=== PATIENT | male | born 1980 | race African-American/Black ===

== ENCOUNTER 2016-12-24 09:15 | Inpatient (IN) | payer MEDICAID ==
[~2016-12-24] VITALS: Ht 180.3 cm; Wt 84.1 kg
--- NOTE | 2016-12-24 09:25 | NUR ---
DR LUTZ AT THE BEDSIDE FOR EVAL AND EXAM.
[2016-12-24] MEDS ORDERED: CEFAZOLIN 1 G VIAL IM ONE (09:30)
[2016-12-24] MEDS ORDERED: NEOMY/BACITRA/POLYMYXIN B OINT UD PACKET TP ONE ×2 (09:30→09:54)
[2016-12-24] MEDS ORDERED: TDAP DIPH,PERTUSS,TET VAC/PF 0.5 ML DISP.SYRIN IM ONE ×2 (09:30→09:55)
[2016-12-24 09:48] LABS: BASOPHILS # (AUTO) 0.2 K/uL (0.0-8.0); BASOPHILS % (AUTO) 1.3 % (0.0-2.0); EOSINOPHILS # (AUTO) 0.1 K/uL (0.0-0.7); EOSINOPHILS % (AUTO) 0.7 % (0.0-7.0); HEMATOCRIT 50.4 % (40-50); HEMOGLOBIN 17.1 G/DL (14.0-18.0); LYMPHOCYTES # (AUTO) 1.4 K/UL (0.8-4.8); LYMPHOCYTES % (AUTO) 8.6 % (20.5-51.5); MEAN CORPUSCULAR HEMOGLOBIN 29.5 UUG (27.0-31.0); MEAN CORPUSCULAR HGB CONC 34 g/dL (32.0-37.0); MEAN CORPUSCULAR VOLUME 86.6 FL (82.0-92.0); MONOCYTES # (AUTO) 0.8 K/UL (0.1-1.30); MONOCYTES % (AUTO) 4.8 % (0.0-11.0); NEUTROPHILS # (AUTO) 13.7 K/UL (1.8-8.9); NEUTROPHILS % (AUTO) 84.6 % (38.5-71.5); PLATELET COUNT (AUTO) 156 K/UL (150-450); RED BLOOD CELL COUNT(AUTO) 5.82 MIL/UL (4.7-6.1); WHITE BLOOD COUNT (AUTO) 16.2 K/UL (4.0-11.2)
[2016-12-24] MEDS ORDERED: CEFAZOLIN 1 G VIAL ONE (09:54)
[2016-12-24 09:56] LABS: CARBON DIOXIDE 23 mmol/L (21-32); CHLORIDE 97 mmol/L (98-107); ETHANOL 372 MG/DL (0-0); GLUCOSE 127 mg/dL (74-106); POTASSIUM 3.8 mmol/L (3.5-5.1); UREA NITROGEN, BLOOD 8 mg/dL (7-18)
[2016-12-24 10:01] LABS: ALANINE AMINOTRANSFERASE 141 U/L (16-63); ALKALINE PHOSPHATASE 110 U/L (50-136); ASPARTATE AMINOTRANSFERASE 295 U/L (15-37); BILIRUBIN,DIRECT 0.2 mg/dL (0.0-0.2); BILIRUBIN,TOTAL 0.8 mg/dL (0.2-1.0); TOTAL PROTEIN, SERUM 8.8 g/dL (6.4-8.2)
[2016-12-24 10:02] LABS: ACETAMINOPHEN < 2.0 ug/mL (10-30)
--- NOTE | 2016-12-24 10:05 | NUR ---
PT HAS MULTIPLE BRUISES ON TORSO AND UPPER AND LOWER EXTREMITIES IN DIFFERENT HEALING STAGES , AND UNABLE TO RECCALL HOW IT HAPPENED.
[2016-12-24] MEDS ORDERED: IV NORMAL SALINE 1000 ML BAG IV ONE (10:30)
[2016-12-24] MEDS ORDERED: PIPERACILLIN SODIUM/TAZOBACTAM 3.375 G in IV DEXTROSE 5% 50 ML IV ONE (10:30)
[2016-12-24] MEDS ORDERED: VANCOMYCIN IV 1,000 MG in IV DEXTROSE 5% 250 ML IV ONE (10:30)
[2016-12-24 10:35] LABS: THYROID STIMULATING HORMONE 0.726 mIU/mL (0.358-3.740)
[2016-12-24] MEDS ORDERED: VANCOMYCIN IV 200 ML ONE (10:57)
[2016-12-24] MEDS ORDERED: PIPERACILLIN/TAZOBACTAM/D5W 50 ML IV ONE (10:58)
--- NOTE | 2016-12-24 11:19 | NUR ---
PT REMAINES RESTLESS BUT COOPERATIVE AND MORE ALERT. PT STATES HE WAS IN MANIC PHASE OF BIPOLAR AND FELL DOWN SO HE IS ALL CUT AND BRUISED.
[2016-12-24 11:33] LABS: *BILIRUBIN,URIN NEGATIVE (NEGATIVE); *CLARITY,URINE CLEAR (CLEAR); *COLOR,URINE YELLOW (YELLOW); *KETONES,URINE 1+ (NEGATIVE); *PROTEIN,URINE 2+ (NEGATIVE); *UROBILINOGEN,URINE 0.2 E.U./dl (NORMAL); LEUKOCYTE ESTERASE ,URINE NEGATIVE (NEGATIVE); NITRITE, URINE NEGATIVE (NEGATIVE); PH,URINE 5.5 (5.0-8.0); UGLUCOSE NEGATIVE (NEGATIVE)
[2016-12-24 11:44] LABS: *BLOOD, URINE 3+ (NEGATIVE)
[2016-12-24 11:46] LABS: BACTERIA,URINE NONE SEEN /HPF (NONE SEEN); MUCUS,URINE FEW /LPF (0-FEW); RBC,URINE 0-3 /HPF (0-3); SQUAMOUS EPITHELIAL CELL,UR FEW /HPF (NONE SEEN); WBC,URINE 0-3 /HPF (0-3)
[2016-12-24 11:47] LABS: *AMPHETAMINE, URINE NEGATIVE (NEGATIVE); *BARBITURATE, URINE NEGATIVE (NEGATIVE); *CANNABINOID, URINE NEGATIVE (NEGATIVE); *COCCAINE, URINE NEGATIVE (NEGATIVE); *OPIATE, URINE NEGATIVE (NEGATIVE); *PHENCYCLIDINE SCREEN,URINE NEGATIVE (NEGATIVE)
[2016-12-24] MEDS ORDERED: ONDANSETRON 4 MG/2 ML VIAL ONE (11:58)
--- NOTE | 2016-12-24 12:31 | NUR ---
LUNCH PROVIDED, PT HAS POOR APPETITE. BELONGING LIST COMPLETED, PT NOT CANDIDATE FOR MRSA.
[2016-12-24] MEDS ORDERED: CLONIDINE HCL 0.1 MG TABLET PO PRN (12:45)
[2016-12-24] MEDS ORDERED: ONDANSETRON 4 MG/2 ML VIAL IV PRN (12:45)
[2016-12-24] MEDS ORDERED: AMLODIPINE 5 MG TABLET PO SCH (12:45)
[2016-12-24 13:53] VITALS: BP 123/76
[2016-12-24] MEDS ORDERED: ASPIRIN EC 81 MG TABLET.DR PO SCH (14:15)
[2016-12-24] MEDS ORDERED: MORPHINE SULFATE 2 MG/1 ML DISP.SYRIN IV PRN (14:15)
[2016-12-24] MEDS: LORAZEPAM 2 MG/1 ML VIAL IV PRN ×3 (14:46→22:35)
--- NOTE | 2016-12-24 14:59 | NUR ---
ADMISSION PROTOCOL FOLLOWED, PT EXTREMELY ANXIOUS. REMOVED IV, TELE BOX, ARM BAND AND GOWN. HAS MULTIPLE WOUNDS ALL OVER BODY, STATES HE HAD A MENTAL BREAKDOWN AND DOES NOT RECALL EXACTLY HOW HE GOT THE WOUNDS. PT STATED THAT HE HAD 2 BOTTLES OF WINE LAST NIGHT AND WAS STAYING AT A FRIENDS HOUSE BUT NO ONE WAS HOME. AAKASH CHAMBERLAIN SAW PATIENT UPON ARRIVAL, PARTS DELIVERY DRIVER IN ROOM NOW
[2016-12-24] MEDS: IV NS 1000 ML 1,000 ML IV PRN (15:13)
[2016-12-24] MEDS: MORPHINE SULFATE 4 MG/1 ML DISP.SYRIN IV PRN (15:44)
--- NOTE | 2016-12-24 15:58 | NUR ---
ADMISSION PICTURES TAKEN, WOUNDS COVERED WITH MEPILEX AND KERLIX PER SECURITY COMPLIANCE SPECIALIST ORDERS
[2016-12-24] MEDS: FOLIC ACID 1 MG TABLET PO SCH (16:32)
[2016-12-24] MEDS: MULTIVITAMINS,THERAPEUTIC TABLET PO SCH (16:32)
[2016-12-24] MEDS: THIAMINE HCL 100 MG TABLET PO SCH (16:32)
[2016-12-24 16:57] VITALS: BP 140/83
[2016-12-24] MEDS: PIPERACILLIN/TAZOBACTAM/D5W 50 ML IV SCH (18:45)
--- NOTE | 2016-12-24 19:00 | NUR ---
PHARMACY CLINICAL NOTES; VANCOMYCIN DOSE Subjective: 36 yo with altered mental status; on empiric therapy (vancomycin and zosyn); Objective: BUN/SCR 8/1.0, WBC 16.2, TEMP 98.8; ; DOSING WT 91 KG Assessment /Plan: patient received 1gm vancomycin in ER @ 11:00 will continue with Vancomycin 2000 mg q12hr starting @ 1900 will ck trough prior to 4th dose (not ordered yet); expected trough 16. RX will continue monitoring renal fxn and adjust the dose as necessary.
[2016-12-24 20:00] VITALS: BP 121/69
[2016-12-24] MEDS: VANCOMYCIN IV 2,000 MG in IV DEXTROSE 5% 500 ML IV SCH (21:22)
[2016-12-24] MEDS: QUETIAPINE FUMARATE 25 MG TABLET PO SCH (21:23)
[2016-12-25] VITALS: BP 127/79
[2016-12-25] MEDS: PIPERACILLIN/TAZOBACTAM/D5W 50 ML IV SCH ×4 (01:06→17:48)
[2016-12-25] MEDS: IV NS 1000 ML 1,000 ML IV PRN ×2 (03:22→15:47)
[2016-12-25 04:12] VITALS: BP 131/73
[2016-12-25 07:01] LABS: BASOPHILS % (AUTO) 0.1 % (0.0-2.0); EOSINOPHILS % (AUTO) 0.1 % (0.0-7.0); HEMATOCRIT 46.8 % (40-50); HEMOGLOBIN 15.5 G/DL (14.0-18.0); LYMPHOCYTES # (AUTO) 0.9 K/UL (0.8-4.8); LYMPHOCYTES % (AUTO) 6.6 % (20.5-51.5); MEAN CORPUSCULAR HEMOGLOBIN 28.5 UUG (27.0-31.0); MEAN CORPUSCULAR HGB CONC 33 g/dL (32.0-37.0); MEAN CORPUSCULAR VOLUME 86.2 FL (82.0-92.0); MONOCYTES # (AUTO) 0.6 K/UL (0.1-1.30); MONOCYTES % (AUTO) 4.5 % (0.0-11.0); NEUTROPHILS # (AUTO) 12.3 K/UL (1.8-8.9); NEUTROPHILS % (AUTO) 88.7 % (38.5-71.5); PLATELET COUNT (AUTO) 115 K/UL (150-450); RED BLOOD CELL COUNT(AUTO) 5.43 MIL/UL (4.7-6.1); WHITE BLOOD COUNT (AUTO) 13.8 K/UL (4.0-11.2)
[2016-12-25 07:16] LABS: THYROID STIMULATING HORMONE 2.222 mIU/mL (0.358-3.740)
--- NOTE | 2016-12-25 08:00 | NUR ---
awake alert and oriented x 4, denies of pain, no shortness of breath noted, on 1:1 sitter, tele SR 98, explained plan of care- verbalized understanding, safety measures maintained, dsg on left wrist and right leg dry and intact, needs attended
[2016-12-25 08:04] LABS: BILIRUBIN,TOTAL 1.9 mg/dL (0.2-1.0); CREATININE 1.1 mg/dL (0.6-1.3); MAGNESIUM 1.6 mg/dL (1.8-2.4); PHOSPHOROUS 2.9 mg/dL (2.5-4.9); POTASSIUM 3.7 mmol/L (3.5-5.1); TOTAL PROTEIN, SERUM 7.6 g/dL (6.4-8.2)
[2016-12-25] MEDS: MULTIVITAMINS,THERAPEUTIC TABLET PO SCH (08:17)
[2016-12-25] MEDS: PANTOPRAZOLE SODIUM 40 MG TABLET.DR PO SCH (08:17)
[2016-12-25] MEDS: THIAMINE HCL 100 MG TABLET PO SCH (08:17)
[2016-12-25] MEDS: QUETIAPINE FUMARATE 25 MG TABLET PO SCH ×4 (08:17→21:14)
[2016-12-25] MEDS: FOLIC ACID 1 MG TABLET PO SCH (08:18)
[2016-12-25] MEDS: VANCOMYCIN IV 2,000 MG in IV DEXTROSE 5% 500 ML IV SCH ×2 (08:30→18:45)
[2016-12-25 09:23] VITALS: BP 100/74
--- NOTE | 2016-12-25 10:15 | NUR ---
seen by Dr Brush
[2016-12-25 12:00] VITALS: BP 130/73
--- NOTE | 2016-12-25 14:24 | NUR ---
WOUND CARE CONSULT: PT PRESENTS WITH LACERATIONS TO LEFT WRIST, ELBOW AND RT LOWER LEG, PRESENT ON ADMISSION. PT STATES BROKE A BOTTLE AND FELL ON GLASS. SITTER AT BEDSIDE. RECOMMEND SURGICAL CONSULT. RECOMMENDATIONS MADE FOR WOUND CARE. DISCUSSED WITH NURSING STAFF. WILL SEE PRN. CASTANO IN AGREEMENT WITH PLAN OF CARE. Addendum: 12/25/16 at 1426 by NANCY LIU RN Amended: Links added.
--- NOTE | 2016-12-25 15:00 | NUR ---
downgraded to [facility]
--- NOTE | 2016-12-25 15:45 | NUR ---
discharge instructions given by RN and medications instructions by pharmacist- verbalized understanding, saline lock removed, no swelling/redness noted on site, waiting for son to pick her up Addendum: 12/25/16 at 1653 by JUAN NOGUEIRA RN wrong entry
[2016-12-25] MEDS: BACITRACIN/POLYMYXIN B OINT 15 GM TUBE TOP SCH ×2 (15:48→21:16)
[2016-12-25] MEDS: MAGNESIUM SULFATE/D5W 100 ML IV SCH ×2 (15:48→17:07)
--- NOTE | 2016-12-25 15:50 | NUR ---
wound care done as ordered
[2016-12-25 16:07] VITALS: BP 124/73
--- NOTE | 2016-12-25 16:23 | NUR ---
PHARMACY CLINICAL NOTES; VANCOMYCIN DOSE Subjective: 36 yo with altered mental status; on empiric therapy (vancomycin and zosyn); Objective: BUN/SCR 6/1.1 WBC 13.8, TEMP 99.5 ; DOSING WT 91 KG Assessment /Plan: Will continue Vancomycin 2 gram IV every 12hrs and draw trough by 4th dose(ordered tomorrow 0630 am) for expected trough around 15.47. Will monitor renal function closely to adjust the dose if needed. Will follow daily.
--- NOTE | 2016-12-25 16:34 | NUR ---
son here- escorted to car per w/c in stable condition under son's care- all belongings with her Addendum: 12/25/16 at 1653 by JUAN NOGUEIRA RN wrong entry-
[2016-12-25] MEDS: ACETAMINOPHEN 325 MG TABLET PO PRN ×2 (17:10→23:02)
--- NOTE | 2016-12-25 17:10 | NUR ---
c/o fo generalized aches/pains- medicated with Tylenol 650mg po as ordered prn
--- NOTE | 2016-12-25 18:28 | NUR ---
states headache relieved, resting in bed, no distress noted, all needs attended and met, 1:1 sitter in the room, safety measures maintained
--- NOTE | 2016-12-25 19:30 | NUR ---
RECIEVED PATIENT LAYING COMFORTABLY IN BED. HOB ELEVATED. SAFETY INITIATED. CALL LIGHT WITHIN REACH. WILL REVIEW MEDICATIONS. WILL GIVE MEDICATIONS ORDERED. WILL CONTINUE TO MONITOR.
[2016-12-25] MEDS: LACTOBACILLUS RHAMNOSUS GG 1 EACH CAPSULE PO SCH (21:14)
[2016-12-26] MEDS: PIPERACILLIN/TAZOBACTAM/D5W 50 ML IV SCH ×4 (00:29→18:23)
[2016-12-26] MEDS: IV NS 1000 ML 1,000 ML IV PRN ×2 (05:45→20:44)
[2016-12-26 07:15] LABS: BASOPHILS % (AUTO) 0.2 % (0.0-2.0); EOSINOPHILS # (AUTO) 0.2 K/uL (0.0-0.7); HEMATOCRIT 44.5 % (40-50); HEMOGLOBIN 14.7 G/DL (14.0-18.0); LYMPHOCYTES # (AUTO) 0.9 K/UL (0.8-4.8); LYMPHOCYTES % (AUTO) 8.5 % (20.5-51.5); MEAN CORPUSCULAR HEMOGLOBIN 28.9 UUG (27.0-31.0); MEAN CORPUSCULAR HGB CONC 33 g/dL (32.0-37.0); MEAN CORPUSCULAR VOLUME 87.4 FL (82.0-92.0); MONOCYTES # (AUTO) 0.4 K/UL (0.1-1.30); MONOCYTES % (AUTO) 3.5 % (0.0-11.0); NEUTROPHILS # (AUTO) 8.9 K/UL (1.8-8.9); NEUTROPHILS % (AUTO) 85.8 % (38.5-71.5); RED BLOOD CELL COUNT(AUTO) 5.09 MIL/UL (4.7-6.1); WHITE BLOOD COUNT (AUTO) 10.4 K/UL (4.0-11.2)
[2016-12-26 07:25] LABS: PLATELET COUNT (AUTO) 93 K/UL (150-450)
[2016-12-26 07:30] LABS: CREATININE 0.9 mg/dL (0.6-1.3); MAGNESIUM 2.3 mg/dL (1.8-2.4); POTASSIUM 3.4 mmol/L (3.5-5.1)
--- NOTE | 2016-12-26 08:05 | NUR ---
NO CHANGES T/O SHIFT. SAFETY AND COMFORT MEASURES MAINTAINED T/O SHIFT. SITTER AT BEDSIDE. PICTURES OF WOUNDS AND SCABS TAKEN AND FILED INTO CHART. ALL MEDS GIVEN ORDERED. ALL NEEDS MET.
[2016-12-26] MEDS: VANCOMYCIN IV 2,000 MG in IV DEXTROSE 5% 500 ML IV SCH ×2 (09:00→20:44)
[2016-12-26] MEDS ORDERED: POTASSIUM CHLORIDE 20 MEQ TAB.PRT.SR PO ONE (09:30)
[2016-12-26 09:52] LABS: BAND % (MANUAL) 2 % (0-10); EOSINOPHILS % (MANUAL) 2 % (0-8); LYMPHOCYTES % (MANUAL) 10 % (20-40); MONOCYTES % (MANUAL) 4 % (2-10); NEUTROPHILS % (MANUAL) 82 % (42-75)
[2016-12-26] MEDS: PANTOPRAZOLE SODIUM 40 MG TABLET.DR PO SCH (10:00)
[2016-12-26] MEDS: QUETIAPINE FUMARATE 25 MG TABLET PO SCH ×4 (10:00→20:44)
[2016-12-26] MEDS: LACTOBACILLUS RHAMNOSUS GG 1 EACH CAPSULE PO SCH ×2 (10:01→20:44)
[2016-12-26] MEDS: LORAZEPAM 2 MG/1 ML VIAL IV PRN ×2 (10:01→18:24)
[2016-12-26] MEDS: THIAMINE HCL 100 MG TABLET PO SCH (10:01)
[2016-12-26] MEDS: MULTIVITAMINS,THERAPEUTIC TABLET PO SCH (10:01)
[2016-12-26] MEDS: FOLIC ACID 1 MG TABLET PO SCH (10:01)
[2016-12-26] MEDS: BACITRACIN/POLYMYXIN B OINT 15 GM TUBE TOP SCH ×2 (10:02→23:23)
--- NOTE | 2016-12-26 11:19 | NUR ---
PHARMACY CLINICAL NOTES; VANCOMYCIN DOSE Subjective: 36 yo with altered mental status; on empiric therapy (vancomycin and zosyn); Objective: BUN/SCR 5/0.9 WBC 10.4 , TEMP 98.3 VANCO TROUGH LEVEL: 12.9 Assessment /Plan: Since vanco trough level is below 15-20 mcg/ml rage, will change dose from Vancomycin 2 gram IV every 12hrs to vancomycin 2gm IVB q11h for predicted vancomycin trough level of 15 mcg/ml at steady state. 1st dose is due today at 0900. Plan to draw vancomycin trough level before 4th dose of current regimen (level not yet ordered). Will monitor renal function closely to adjust the dose if needed. Will follow daily.
[2016-12-26 11:42] VITALS: BP 136/89
[2016-12-26 15:45] VITALS: BP 140/91
--- NOTE | 2016-12-26 19:45 | NUR ---
PT RECEIVED SITTING UP IN BED, PT SISTER AT BEDSIDE. NOTED BRUISES AND HEALING SCRATCHES ALL OVER BODY, PT ALSO HAS DRESSING TO RIGHT LOWER LEG, PT EDUCATED ABOUT NON WEIGHT BEARING TO RIGHT LEG. LUNG SOUNDS CLEAR THROUGH OUT WITH AUSCULTATION. VITAL SIGNS WNL. IVF RUNNING IN LEFT ARM, INTACT AND PATENT. PT BED IN LOW AND LOCKED POSITION. CALL LIGHT WITHIN REACH.
[2016-12-26 20:00] VITALS: BP 140/88
--- NOTE | 2016-12-26 20:00 | NUR ---
SPOKE WITH PT SISTER REGARDING PSYCH CONSULT. PT SISTER ADAMANT ABOUT SPEAKING TO PSYCHIATRIST, PT SISTER EDUCATED ABOUT MD ARRIVAL TIME SO PHONE NUMBER WAS LEFT AND WILL GIVEN TO MD.
[2016-12-26] MEDS: ACETAMINOPHEN 325 MG TABLET PO PRN (20:53)
--- NOTE | 2016-12-26 21:15 | NUR ---
PER DR LIMA PT IS TO BE SEEN BY DR MOSQUEDA IN AM, WILL ENDORSE TO ON COMING RN.
[2016-12-27] MEDS: PIPERACILLIN/TAZOBACTAM/D5W 50 ML IV SCH ×3 (01:00→13:15)
[2016-12-27] MEDS: MORPHINE SULFATE 4 MG/1 ML DISP.SYRIN IV PRN (01:08)
[2016-12-27 06:00] VITALS: BP 134/96
[2016-12-27] MEDS: ACETAMINOPHEN 325 MG TABLET PO PRN ×2 (06:03→22:17)
[2016-12-27 06:45] LABS: BASOPHILS % (AUTO) 0.5 % (0.0-2.0); EOSINOPHILS # (AUTO) 0.4 K/uL (0.0-0.7); HEMATOCRIT 41.9 % (40-50); LYMPHOCYTES # (AUTO) 1.3 K/UL (0.8-4.8); LYMPHOCYTES % (AUTO) 15.3 % (20.5-51.5); MEAN CORPUSCULAR HEMOGLOBIN 29.5 UUG (27.0-31.0); MEAN CORPUSCULAR HGB CONC 34 g/dL (32.0-37.0); MEAN CORPUSCULAR VOLUME 88.1 FL (82.0-92.0); MONOCYTES # (AUTO) 0.5 K/UL (0.1-1.30); MONOCYTES % (AUTO) 5.9 % (0.0-11.0); NEUTROPHILS # (AUTO) 6.1 K/UL (1.8-8.9); NEUTROPHILS % (AUTO) 73.3 % (38.5-71.5); PLATELET COUNT (AUTO) 102 K/UL (150-450); RED BLOOD CELL COUNT(AUTO) 4.76 MIL/UL (4.7-6.1); WHITE BLOOD COUNT (AUTO) 8.3 K/UL (4.0-11.2)
[2016-12-27 07:01] LABS: CREATININE 0.9 mg/dL (0.6-1.3); POTASSIUM 3.1 mmol/L (3.5-5.1)
[2016-12-27] MEDS: VANCOMYCIN IV 2,000 MG in IV DEXTROSE 5% 500 ML IV SCH (07:10)
[2016-12-27] MEDS: FOLIC ACID 1 MG TABLET PO SCH (08:46)
[2016-12-27] MEDS: QUETIAPINE FUMARATE 25 MG TABLET PO SCH ×4 (08:46→20:41)
[2016-12-27] MEDS: LORAZEPAM 2 MG/1 ML VIAL IV PRN ×3 (08:46→22:15)
[2016-12-27] MEDS: PANTOPRAZOLE SODIUM 40 MG TABLET.DR PO SCH (08:46)
[2016-12-27] MEDS: MULTIVITAMINS,THERAPEUTIC TABLET PO SCH (08:46)
[2016-12-27] MEDS: LACTOBACILLUS RHAMNOSUS GG 1 EACH CAPSULE PO SCH ×2 (08:46→20:41)
[2016-12-27] MEDS: THIAMINE HCL 100 MG TABLET PO SCH (08:46)
[2016-12-27] MEDS: BACITRACIN/POLYMYXIN B OINT 15 GM TUBE TOP SCH ×2 (09:00→20:46)
[2016-12-27 11:20] VITALS: BP 136/84
[2016-12-27] MEDS ORDERED: POTASSIUM CHLORIDE 20 MEQ TAB.PRT.SR PO ONE (12:15)
[2016-12-27] MEDS ORDERED: CLON0.2T PO (12:39)
[2016-12-27] MEDS ORDERED: TRAZ-147 PO (12:41)
[2016-12-27] MEDS ORDERED: CLON2TAB PO (12:42)
--- NOTE | 2016-12-27 14:25 | NUR ---
PHARMACY CLINICAL NOTES; VANCOMYCIN DOSE Subjective: 36 yo with altered mental status; on empiric therapy (vancomycin and zosyn); Objective: BUN/SCR 7/0.9 WBC 8.3 , TEMP 98.7 Assessment /Plan: Since renal function is stable, will continue Vancomycin 2 grams IV every 11hrs and draw trough by 4th dose(ordered today at 1730) for expected trough level of 15 mcg/ml at steady state. Will monitor renal function closely to adjust the dose if needed. Will follow daily.
[2016-12-27 15:05] VITALS: BP 118/78
--- NOTE | 2016-12-27 20:00 | NUR ---
RECEIVED PATIENT AWAKE IN BED. A/O X4. DENIES PAIN OR DISCOMFORT. NO RESP. DISTRESS NOTED. IVF INFUSING WELL TO LEFT FA #20 GAUGE. CALL LIGHT IN REACH. ALL NEEDS ATTENDED. WILL CONTINUE TO MONITOR.
[2016-12-27 20:27] VITALS: BP 140/98
[2016-12-27] MEDS: IV NS 1000 ML 1,000 ML IV PRN (20:41)
[2016-12-28] MEDS: LORAZEPAM 2 MG/1 ML VIAL IV PRN ×3 (04:36→20:15)
[2016-12-28] MEDS: IV NS 1000 ML 1,000 ML IV PRN ×3 (04:40→20:00)
[2016-12-28] MEDS: ACETAMINOPHEN 325 MG TABLET PO PRN ×2 (04:40→11:18)
[2016-12-28 04:45] VITALS: BP 141/97
[2016-12-28 06:42] LABS: BASOPHILS # (AUTO) 0.1 K/uL (0.0-8.0); BASOPHILS % (AUTO) 0.7 % (0.0-2.0); EOSINOPHILS # (AUTO) 0.3 K/uL (0.0-0.7); EOSINOPHILS % (AUTO) 3.6 % (0.0-7.0); HEMATOCRIT 42.9 % (40-50); HEMOGLOBIN 14.3 G/DL (14.0-18.0); LYMPHOCYTES # (AUTO) 1.3 K/UL (0.8-4.8); MEAN CORPUSCULAR HEMOGLOBIN 29.3 UUG (27.0-31.0); MEAN CORPUSCULAR HGB CONC 33 g/dL (32.0-37.0); MONOCYTES # (AUTO) 0.7 K/UL (0.1-1.30); MONOCYTES % (AUTO) 9.2 % (0.0-11.0); NEUTROPHILS # (AUTO) 5.7 K/UL (1.8-8.9); NEUTROPHILS % (AUTO) 70.5 % (38.5-71.5); PLATELET COUNT (AUTO) 123 K/UL (150-450); RED BLOOD CELL COUNT(AUTO) 4.87 MIL/UL (4.7-6.1); WHITE BLOOD COUNT (AUTO) 8.1 K/UL (4.0-11.2)
--- NOTE | 2016-12-28 06:51 | NUR ---
PATIENT AWAKE IN BED. DENIES PAIN OR DISCOMFORT. NO RESP. DISTRESS NOTED. VS WNL. NEW IV HEPLOCK NOTED TO LEFT AC #18 GAUGE WITH IVF WELL. SLEPT AT INTERVALS. PATIENT KEPT NPO SINCE MIDNIGHT ORDERED. CALL LIGHT IN REACH. ALL NEEDS ATTENDED. WILL CONTINUE TO MONITOR.
[2016-12-28 06:58] LABS: CARBON DIOXIDE 25 mmol/L (21-32); CHLORIDE 103 mmol/L (98-107); CREATININE 0.8 mg/dL (0.6-1.3); GLUCOSE 102 mg/dL (74-106); MAGNESIUM 1.6 mg/dL (1.8-2.4); POTASSIUM 3.1 mmol/L (3.5-5.1); UREA NITROGEN, BLOOD 6 mg/dL (7-18)
[2016-12-28] MEDS: PANTOPRAZOLE SODIUM 40 MG TABLET.DR PO SCH (09:50)
[2016-12-28] MEDS: QUETIAPINE FUMARATE 25 MG TABLET PO SCH ×4 (09:50→20:04)
[2016-12-28] MEDS: THIAMINE HCL 100 MG TABLET PO SCH (09:51)
[2016-12-28] MEDS: FOLIC ACID 1 MG TABLET PO SCH (09:51)
[2016-12-28] MEDS: MULTIVITAMINS,THERAPEUTIC TABLET PO SCH (09:51)
[2016-12-28] MEDS: LACTOBACILLUS RHAMNOSUS GG 1 EACH CAPSULE PO SCH ×2 (09:51→20:03)
[2016-12-28] MEDS ORDERED: ONDANSETRON 4 MG/2 ML VIAL IV ONE (09:55)
[2016-12-28] MEDS ORDERED: LIDOCAINE HCL 1% 20 ML VIAL MC ONE (09:55)
[2016-12-28] MEDS ORDERED: SEVOFLURANE 250 ML BOTTLE IH ONE (09:55)
[2016-12-28] MEDS ORDERED: PROPOFOL 200 MG/20 ML BOTTLE IV ONE (09:55)
[2016-12-28] MEDS ORDERED: DEXAMETHASONE SOD PHOSPHATE 4 MG INJ IV ONE (09:55)
[2016-12-28] MEDS ORDERED: CEFAZOLIN 1 G VIAL MC ONE (09:55)
[2016-12-28] MEDS ORDERED: IV LACTATED RINGERS SOLUTION 1,000 ML BAG IV ONE (09:55)
[2016-12-28] MEDS: BACITRACIN/POLYMYXIN B OINT 15 GM TUBE TOP SCH ×2 (11:19→20:04)
[2016-12-28 11:58] VITALS: BP 146/100
[2016-12-28] MEDS ORDERED: POTASSIUM CHLORIDE 20 MEQ TAB.PRT.SR PO ONE (13:30)
[2016-12-28] MEDS: MAGNESIUM SULFATE/D5W 100 ML IV SCH ×3 (13:48→15:09)
[2016-12-28 16:10] VITALS: BP 141/101
--- NOTE | 2016-12-28 16:45 | NUR ---
PT. RESTING IN BED AND ELEVATED RIGHT LEG. NPO FOR SURGERY. WOUND CARE PERFORMED THIS MORNING. POTASSIUM AND MAGNESIUM REPLACED PER ORDER. PT. OFFERS NO COMPLAINTS. PRE-OP CHECK LIST COMPLETED. 1645 ` PT. LEFT FOR SURGERY VIA BED. SL. Addendum: 12/28/16 at 1721 by NELLIE ORDONEZ RN Amended: Links added.
[2016-12-28] MEDS ORDERED: HYDROMORPHONE 2 MG/1 ML DISP.SYRIN ONE (17:23)
[2016-12-28] MEDS ORDERED: ROCURONIUM BROMIDE 50 MG/5 ML VIAL ONE (17:24)
[2016-12-28] MEDS ORDERED: MIDAZOLAM HCL 2 MG/2 ML VIAL ONE (17:24)
[2016-12-28] MEDS ORDERED: POLYMYXIN B SULFATE 500,000 UNITS, BACITRACIN 50,000 UNITS, NORMAL SALINE 20 ML MC ONE ×3 (17:30)
[2016-12-28] MEDS ORDERED: BUPIVACAINE/EPI PF 0.5% 10 ML VIAL ONE (18:00)
[2016-12-28] MEDS ORDERED: BUPIVACAINE PF 0.5% 30 ML VIAL ONE (18:00)
[2016-12-28] MEDS ORDERED: CEFAZOLIN 50 ML IV ONE (18:52)
[2016-12-28] MEDS ORDERED: MORPHINE SULFATE 4 MG/1 ML DISP.SYRIN IV PRN (19:00)
[2016-12-28] MEDS ORDERED: HYDROMORPHONE 1 MG/1 ML DISP.SYRIN ONE (19:26)
[2016-12-28] MEDS ORDERED: diphenhydrAMINE 50 MG/1 ML VIAL ONE (19:37)
--- NOTE | 2016-12-28 19:45 | NUR ---
RECEIVED PATIENT VIA BED FROM SURGERY, POST-OP ORIF OF THE RIGHT LOWER LEG. PATIENT IS A/O X4. DENIES PAIN UPON ARRIVAL BACK TO THE FLOOR. NEURO-VASCULAR CHECKS WNL. SENSATION IS PRESENT AND PATIENT IS ABLE TO MOVE AND WIGGLE TOES. H/L INTACT AND PATENT, WITH IVF INFUSING ORDERED. BED ALARM ON. PATIENT MADE COMFORTABLE AND INFORMED TO REMAIN ON BEDREST UNTIL PT COMES TO EVALUATE IN AM. CALL LIGHT IN REACH. ALL NEEDS ATTENDED. WILL CONTINUE TO MONITOR.
[2016-12-28 20:00] VITALS: BP 154/117
--- NOTE | 2016-12-28 20:00 | NUR ---
PATIENTS BLOOD PRESSURE 154/111. PATIENT GIVEN CLONIDINE 0.1MG PO PRN FOR ELEVATED BP. WILL CONTINUE TO MONITOR.
--- NOTE | 2016-12-28 20:15 | NUR ---
PATIENT AWAKE IN BED. DENIES PAIN BUT ASKING FOR ATIVAN. PATIENT GIVEN ATIVAN 1MG IV PRN PER CAUSTIC MIXER. DRESSING NOTED TO RIGHT LOWER EXTREMITY, CLEAN, DRY AND INTACT. CALL LIGHT IN REACH. WILL CONTINUE TO MONITOR.
[2016-12-29] MEDS: HYDROCODONE/APAP 10-325 MG TABLET PO PRN ×5 (01:24→21:00)
[2016-12-29] MEDS: LORAZEPAM 2 MG/1 ML VIAL IV PRN ×5 (01:25→22:04)
[2016-12-29] MEDS: CEFAZOLIN 1 G in PREMIXED 1 EACH IV SCH ×2 (03:13→11:11)
[2016-12-29] MEDS: IV NS 1000 ML 1,000 ML IV PRN ×3 (03:18→23:03)
[2016-12-29] MEDS: ACETAMINOPHEN 325 MG TABLET PO PRN ×3 (03:45→23:12)
[2016-12-29 05:00] VITALS: BP 137/91
--- NOTE | 2016-12-29 06:00 | NUR ---
PATIENT AWAKE IN BED. SLEPT AT INTERVALS THROUGHOUT THE NIGHT. C/O PAIN IN LOWER LEG. PATIENT GIVEN NORCO 1 TAB PO PRN FOR PAIN. VSS. NEURO-VASCULAR CHECKS WNL. PATIENT STATED HE HAS A RASH ON BOTH SIDES OF HIS GROIN. REDNESS NOTED. WILL ENDORSE TO AM SHIFT. ALL NEEDS ATTENDED.
[2016-12-29 06:26] LABS: CARBON DIOXIDE 25 mmol/L (21-32); CHLORIDE 101 mmol/L (98-107); CREATININE 0.8 mg/dL (0.6-1.3); GLUCOSE 131 mg/dL (74-106); POTASSIUM 3.6 mmol/L (3.5-5.1); UREA NITROGEN, BLOOD 10 mg/dL (7-18)
[2016-12-29 06:44] LABS: BASOPHILS % (AUTO) 0.1 % (0.0-2.0); EOSINOPHILS % (AUTO) 0.3 % (0.0-7.0); HEMATOCRIT 40.4 % (40-50); HEMOGLOBIN 13.4 G/DL (14.0-18.0); LYMPHOCYTES # (AUTO) 1.1 K/UL (0.8-4.8); LYMPHOCYTES % (AUTO) 10.4 % (20.5-51.5); MEAN CORPUSCULAR HEMOGLOBIN 28.9 UUG (27.0-31.0); MEAN CORPUSCULAR HGB CONC 33 g/dL (32.0-37.0); MEAN CORPUSCULAR VOLUME 87.4 FL (82.0-92.0); MONOCYTES # (AUTO) 1.1 K/UL (0.1-1.30); MONOCYTES % (AUTO) 10.2 % (0.0-11.0); NEUTROPHILS # (AUTO) 8.8 K/UL (1.8-8.9); PLATELET COUNT (AUTO) 151 K/UL (150-450); RED BLOOD CELL COUNT(AUTO) 4.62 MIL/UL (4.7-6.1)
--- NOTE | 2016-12-29 07:15 | NUR ---
triple antibiotics given in or during surgery
--- NOTE | 2016-12-29 08:00 | NUR ---
RESTING IN BED RIGHT LEG WITH GOOD SENSATION, AND CAPILLARY REFILL, DRESSING DRY AND INTACT CONTINUE IV ANTIBIOTIC AND PAIN MANAGEMENT
[2016-12-29] MEDS: MULTIVITAMINS,THERAPEUTIC TABLET PO SCH (08:22)
[2016-12-29] MEDS: PANTOPRAZOLE SODIUM 40 MG TABLET.DR PO SCH (08:22)
[2016-12-29] MEDS: THIAMINE HCL 100 MG TABLET PO SCH (08:22)
[2016-12-29] MEDS: FOLIC ACID 1 MG TABLET PO SCH (08:22)
[2016-12-29] MEDS: QUETIAPINE FUMARATE 25 MG TABLET PO SCH ×4 (08:22→20:48)
[2016-12-29] MEDS: BACITRACIN/POLYMYXIN B OINT 15 GM TUBE TOP SCH ×2 (08:23→20:55)
[2016-12-29] MEDS: LACTOBACILLUS RHAMNOSUS GG 1 EACH CAPSULE PO SCH ×2 (08:51→20:48)
[2016-12-29 09:01] LABS: BAND % (MANUAL) 5 % (0-10); LYMPHOCYTES % (MANUAL) 13 % (20-40); MONOCYTES % (MANUAL) 15 % (2-10); NEUTROPHILS % (MANUAL) 67 % (42-75)
[2016-12-29 12:01] VITALS: BP 156/110
--- NOTE | 2016-12-29 13:00 | NUR ---
SEEN BY PHYSICAL THERAPY NON-WT BEARING RIGHT LEG
[2016-12-29 16:21] VITALS: BP 158/108
--- NOTE | 2016-12-29 18:43 | NUR ---
SEEN BY DR HUITRON SEE NOTES
--- NOTE | 2016-12-29 19:20 | NUR ---
Bedside reporting with SHERYL Matthews. Awake during initial rounds. Denies pain at this time. IVF infusing well on right forearm with slight tenderness on site. Complaint of slight pain on IV site. Offered re insertion to another site but wants it in in a later time. Right LE with dressing dry and intact. elevated with puilloe with continuos ice pack. No circulation impairment noted. Able to wiggle toes and with good pulses noted. Continue care as planned.
[2016-12-29 20:00] VITALS: BP 140/69
--- NOTE | 2016-12-29 21:00 | NUR ---
[place]field for pain was given. Patient complaining of right back pain at this time. Will monitor.
--- NOTE | 2016-12-29 22:05 | NUR ---
Ativan given for anxiety and sleep as needed. Will monitor.
[2016-12-30] MEDS: HYDROCODONE/APAP 10-325 MG TABLET PO PRN ×5 (01:27→20:34)
--- NOTE | 2016-12-30 01:30 | NUR ---
Complaining of right leg pain, medicated as needed and ordered. Will monitor.
[2016-12-30] MEDS: LORAZEPAM 2 MG/1 ML VIAL IV PRN ×5 (03:50→22:13)
[2016-12-30 04:00] VITALS: BP 149/88
[2016-12-30 06:18] LABS: BASOPHILS # (AUTO) 0.1 K/uL (0.0-8.0); BASOPHILS % (AUTO) 0.7 % (0.0-2.0); EOSINOPHILS # (AUTO) 0.1 K/uL (0.0-0.7); EOSINOPHILS % (AUTO) 1.5 % (0.0-7.0); HEMATOCRIT 40.8 % (40-50); HEMOGLOBIN 13.4 G/DL (14.0-18.0); LYMPHOCYTES # (AUTO) 1.6 K/UL (0.8-4.8); LYMPHOCYTES % (AUTO) 17.5 % (20.5-51.5); MEAN CORPUSCULAR HEMOGLOBIN 28.8 UUG (27.0-31.0); MEAN CORPUSCULAR HGB CONC 33 g/dL (32.0-37.0); MEAN CORPUSCULAR VOLUME 87.8 FL (82.0-92.0); MONOCYTES # (AUTO) 1.4 K/UL (0.1-1.30); MONOCYTES % (AUTO) 15.6 % (0.0-11.0); NEUTROPHILS # (AUTO) 6.1 K/UL (1.8-8.9); NEUTROPHILS % (AUTO) 64.7 % (38.5-71.5); RED BLOOD CELL COUNT(AUTO) 4.64 MIL/UL (4.7-6.1); WHITE BLOOD COUNT (AUTO) 9.3 K/UL (4.0-11.2)
--- NOTE | 2016-12-30 06:20 | NUR ---
VSS. Medicated for pain 4x as needed and as ordered with relief. Ativan given 2x as needed for anxiety. No further complaint presented. All needs attended and met. Right leg dressing dry and intact and elevated with pillow. Good pedal pulses noted. Able to wiggle toes without difficulty. IVF continuos as ordered. No significant ervent reported all night. Continue current plan of care.
[2016-12-30 06:38] LABS: PLATELET COUNT (AUTO) 191 K/UL (150-450)
[2016-12-30 06:39] LABS: BILIRUBIN,TOTAL 0.5 mg/dL (0.2-1.0); CREATININE 0.9 mg/dL (0.6-1.3); POTASSIUM 3.5 mmol/L (3.5-5.1); TOTAL PROTEIN, SERUM 7.1 g/dL (6.4-8.2)
[2016-12-30] MEDS: ACETAMINOPHEN 325 MG TABLET PO PRN ×2 (07:00→17:53)
--- NOTE | 2016-12-30 07:09 | NUR ---
Bedside reporting with SHERYL Matthews
[2016-12-30] MEDS: IV NS 1000 ML 1,000 ML IV PRN (07:28)
--- NOTE | 2016-12-30 08:00 | NUR ---
RESTING COMFORTABLY, CONTINUE WITH PAIN MANAGEMENT, RIGHT FOOT WARM AND DRY TO TOUCH WITH GOOD CAPILLARY REFILL. DRESSING DRY AND NO SIGNS OF BLEEDING. AFEBRILE
[2016-12-30 08:16] LABS: BAND % (MANUAL) 4 % (0-10); EOSINOPHILS % (MANUAL) 2 % (0-8); LYMPHOCYTES % (MANUAL) 17 % (20-40); MONOCYTES % (MANUAL) 15 % (2-10); NEUTROPHILS % (MANUAL) 61 % (42-75)
[2016-12-30 08:17] LABS: REACTIVE LYMPHOCYTES 1 % (0-0)
[2016-12-30] MEDS: PANTOPRAZOLE SODIUM 40 MG TABLET.DR PO SCH (08:36)
[2016-12-30] MEDS: LACTOBACILLUS RHAMNOSUS GG 1 EACH CAPSULE PO SCH ×2 (08:36→20:34)
[2016-12-30] MEDS: MULTIVITAMINS,THERAPEUTIC TABLET PO SCH (08:36)
[2016-12-30] MEDS: THIAMINE HCL 100 MG TABLET PO SCH (08:37)
[2016-12-30] MEDS: FOLIC ACID 1 MG TABLET PO SCH (08:37)
[2016-12-30] MEDS: QUETIAPINE FUMARATE 25 MG TABLET PO SCH ×6 (08:37→20:36)
[2016-12-30] MEDS: BACITRACIN/POLYMYXIN B OINT 15 GM TUBE TOP SCH ×2 (08:38→22:14)
[2016-12-30 12:21] VITALS: BP 145/103
[2016-12-30 16:09] VITALS: BP 144/96
[2016-12-31] MEDS: HYDROCODONE/APAP 10-325 MG TABLET PO PRN ×5 (01:11→18:57)
[2016-12-31] MEDS: LORAZEPAM 2 MG/1 ML VIAL IV PRN ×4 (03:24→21:06)
[2016-12-31 06:16] VITALS: BP 151/101
[2016-12-31 06:34] LABS: CREATININE 0.9 mg/dL (0.6-1.3); POTASSIUM 3.4 mmol/L (3.5-5.1)
[2016-12-31 06:52] LABS: WHITE BLOOD COUNT (AUTO) 8.5 K/UL (4.0-11.2)
[2016-12-31 06:53] LABS: HEMATOCRIT 41.9 % (40-50); HEMOGLOBIN 13.8 G/DL (14.0-18.0); MEAN CORPUSCULAR HEMOGLOBIN 28.8 UUG (27.0-31.0); MEAN CORPUSCULAR HGB CONC 33 g/dL (32.0-37.0); MEAN CORPUSCULAR VOLUME 87.1 FL (82.0-92.0); PLATELET COUNT (AUTO) 266 K/UL (150-450); RED BLOOD CELL COUNT(AUTO) 4.81 MIL/UL (4.7-6.1)
--- NOTE | 2016-12-31 07:30 | NUR ---
RECEIVED REPORT FROM TISSUE INSERTER NURSE, PATIENT IN BED AWAKE, BED IN LOW POSITION, SIDE RAILS UP X2.
--- NOTE | 2016-12-31 07:32 | NUR ---
pt continue to have pain to right leg, norco atc with ativan, not sleeping well overnight. kept right leg elevated with pillows with ice packs.all needs attended,call light at reached.
[2016-12-31 07:40] LABS: EOSINOPHILS % (MANUAL) 4 % (0-8); LYMPHOCYTES % (MANUAL) 31 % (20-40); MONOCYTES % (MANUAL) 12 % (2-10); NEUTROPHILS % (MANUAL) 53 % (42-75)
[2016-12-31] MEDS: LACTOBACILLUS RHAMNOSUS GG 1 EACH CAPSULE PO SCH ×2 (09:03→20:52)
[2016-12-31] MEDS: MULTIVITAMINS,THERAPEUTIC TABLET PO SCH (09:03)
[2016-12-31] MEDS: FOLIC ACID 1 MG TABLET PO SCH (09:03)
[2016-12-31] MEDS: QUETIAPINE FUMARATE 25 MG TABLET PO SCH ×4 (09:03→20:52)
[2016-12-31] MEDS: BACITRACIN/POLYMYXIN B OINT 15 GM TUBE TOP SCH ×2 (09:03→20:53)
[2016-12-31] MEDS: THIAMINE HCL 100 MG TABLET PO SCH (09:03)
[2016-12-31] MEDS: PANTOPRAZOLE SODIUM 40 MG TABLET.DR PO SCH (09:03)
[2016-12-31] MEDS ORDERED: POTASSIUM CHLORIDE 20 MEQ TAB.PRT.SR PO ONE ×2 (11:00)
[2016-12-31 11:14] VITALS: BP 138/85
[2016-12-31 15:34] VITALS: BP 130/91
--- NOTE | 2016-12-31 19:15 | NUR ---
RECEIVED PATIENT IN BED, ALERT ORIENTED, ON PAIN MANAGEMENT, R LEG WITH WRAPPED DRESSING INTACT, R LEG ELEVATED WITH PILLOW, CALL LIGHT WITHIN REACH.
--- NOTE | 2016-12-31 19:50 | NUR ---
Patient had intermittent episodes of anxiety and asked for ativan. patient also felt that his stomach was upset by the potassium, and had two loose stools. Intermittent pain with right leg, and medication helped relieve the pain.
[2016-12-31 20:47] VITALS: BP 133/94
[2017-01-01] MEDS: HYDROCODONE/APAP 10-325 MG TABLET PO PRN ×4 (00:09→15:22)
[2017-01-01] MEDS: LORAZEPAM 2 MG/1 ML VIAL IV PRN ×3 (00:58→11:36)
[2017-01-01 04:00] VITALS: BP 142/94
--- NOTE | 2017-01-01 05:28 | NUR ---
PATIENT ALERT AWAKE ABLE TO MAKE NEEDS KNOWN, NO SOB NO CHEST PAIN, ON PAIN MANAGEMENT, R LEG WITH DRESSING INTACT, R LEG ELEVATED WITH PILLOW, SKIN COLOR WNL, CONT TO MONITOR.
--- NOTE | 2017-01-01 05:31 | NUR ---
PATIENT HAS EPISODE OF ANXIETY, ASKED FOR ATIVAN WITH HELP AFTER ONE HOURS. CONT TO MONITOR.
[2017-01-01 07:11] LABS: HEMOGLOBIN 14.1 G/DL (14.0-18.0); MEAN CORPUSCULAR HEMOGLOBIN 29.4 UUG (27.0-31.0); MEAN CORPUSCULAR HGB CONC 33 g/dL (32.0-37.0); MEAN CORPUSCULAR VOLUME 88.1 FL (82.0-92.0); PLATELET COUNT (AUTO) 332 K/UL (150-450); RED BLOOD CELL COUNT(AUTO) 4.77 MIL/UL (4.7-6.1); WHITE BLOOD COUNT (AUTO) 7.2 K/UL (4.0-11.2)
[2017-01-01 07:17] LABS: POTASSIUM 3.6 mmol/L (3.5-5.1)
--- NOTE | 2017-01-01 08:00 | NUR ---
NO SIGNS OF PAIN OR DISTRESS CONTINUE WITH PAIN MANAGEMENT, WILL INITIATE DC PLAN
[2017-01-01] MEDS: QUETIAPINE FUMARATE 25 MG TABLET PO SCH ×3 (08:13→17:18)
[2017-01-01] MEDS: PANTOPRAZOLE SODIUM 40 MG TABLET.DR PO SCH (08:13)
[2017-01-01] MEDS: MULTIVITAMINS,THERAPEUTIC TABLET PO SCH (08:13)
[2017-01-01] MEDS: FOLIC ACID 1 MG TABLET PO SCH (08:13)
[2017-01-01] MEDS: THIAMINE HCL 100 MG TABLET PO SCH (08:13)
[2017-01-01] MEDS: LACTOBACILLUS RHAMNOSUS GG 1 EACH CAPSULE PO SCH (08:13)
[2017-01-01] MEDS: BACITRACIN/POLYMYXIN B OINT 15 GM TUBE TOP SCH (08:14)
[2017-01-01 08:55] LABS: BAND % (MANUAL) 1 % (0-10); EOSINOPHILS % (MANUAL) 4 % (0-8); LYMPHOCYTES % (MANUAL) 23 % (20-40); MONOCYTES % (MANUAL) 23 % (2-10); NEUTROPHILS % (MANUAL) 49 % (42-75)
[2017-01-01] MEDS ORDERED: POTASSIUM CHLORIDE 20 MEQ TAB.PRT.SR PO ONE (09:30)
--- NOTE | 2017-01-01 10:00 | NUR ---
CONTINUE WITH PAIN MANAGEMENT AFEBRILE
[2017-01-01 11:45] VITALS: BP 138/90
--- NOTE | 2017-01-01 13:00 | NUR ---
SEEN BY DR FROST WITH ORDERS, FOR DISCHARGE HOME TODAY INCIN[employer]ATOR [employer] AWARE
[2017-01-01] MEDS ORDERED: MULT-24 PO (14:19)
[2017-01-01] MEDS ORDERED: FOLI1TAB16 PO (14:19)
[2017-01-01] MEDS ORDERED: THIA100T13 PO (14:19)
[2017-01-01] MEDS ORDERED: QUET25TA PO (14:19)
[2017-01-01] MEDS ORDERED: HYDR-548 PO (14:19)
[2017-01-01 15:31] VITALS: BP 134/97
--- NOTE | 2017-01-01 16:51 | NUR ---
AWAITING FAMILY FOR A RIDE TO GO HOME, DISCHARGED INSTRUCTION GIVEN
--- NOTE | 2017-01-01 19:30 | NUR ---
PATIENT PICKED UP BY FAMILY VIA PRIVATE CAR, IN FAIR CONDITION, TOOK ALL BELONGS, DISCHARGE HOME.
== END 2017-01-01 19:30 | disposition home or self-care (01) | DRG 950 ==
LOC: ER 09:15 → TELE 12:31 → MED 12-25 14:50
PROVIDERS: ADMIT Nurse Practitioner Acute Care; ATTEND Nurse Practitioner Acute Care
PROC: 0QSJ04Z Reposition Right Fibula with Internal Fixation Device, Open Approach (ICD-10-PCS; principal; 2016-12-28 17:27)
DX: L03.115 Cellulitis of right lower limb (principal); I21.4 Non-ST elevation (NSTEMI) myocardial infarction; G92 Toxic encephalopathy; M62.82 Rhabdomyolysis; E87.2 Acidosis; S82.61XB Displaced fracture of lateral malleolus of right fibula, initial encounter for open fracture type I or II; E83.42 Hypomagnesemia; E11.65 Type 2 diabetes mellitus with hyperglycemia; F10.129 Alcohol abuse with intoxication, unspecified; E86.0 Dehydration; F20.9 Schizophrenia, unspecified; E87.6 Hypokalemia; F31.9 Bipolar disorder, unspecified; F41.9 Anxiety disorder, unspecified; F29 Unspecified psychosis not due to a substance or known physiological condition; S60.812A Abrasion of left wrist, initial encounter; Z91.83 Wandering in diseases classified elsewhere; W19.XXXA Unspecified fall, initial encounter; Y92.9 Unspecified place or not applicable; R29.6 Repeated falls; F41.0 Panic disorder [episodic paroxysmal anxiety]; B18.2 Chronic viral hepatitis C; I10 Essential (primary) hypertension
CPT/HCPCS: 36415; 70030-TC; 70450; 71010; 72125; 73560; 73610; 76000; 80307; 83605; 83735; 84100; 84443; 85025; 85730; 87040; 87070; 87086; 90715; 93005; 93307; A4217; A4649; A4663; G0480; G0480-TC; J0690; J1100; J1170; J1200; J2060; J2250; J2270; J2405; J2543; J3370; J3475; J3490; J7030; J7060; J7120